=== PATIENT | male | born 1995 | race Caucasian/White ===

== ENCOUNTER 2018-06-05 22:51 | Emergency (ER) | payer BC, SELFPAY ==
[2018-06-05 22:53] VITALS: BP 139/83; PULSE 106; RESP 25; TEMP 37.4; O2SAT 99; BMI 35.9
--- NOTE | 2018-06-05 23:13 | EKG12_ITS ---
Test Reason : CP Blood Pressure : / mmHG Vent. Rate : 105 BPM Atrial Rate : 105 BPM P-R Int : 130 ms QRS Dur : 084 ms QT Int : 332 ms P-R-T Axes : 056 067 042 degrees QTc Int : 438 ms Sinus tachycardia Otherwise normal ECG Confirmed by JALEN WIN, JAVIER ([id number]), feather separator OTTONIEL SAXENA ([id number]) on 06/07/2018 11:09:34 AM Referred By: Usman Frankel Confirmed By:JAVIER RAO MD
--- NOTE | 2018-06-05 23:13 | RAD_ITS ---
HISTORY: CoughRAD - ChestCHEST PAIN TONIGHT WHILE WATCHING TV, NO HX OF PAIN EXAM:XR Chest 2 Views: COMPARISON: None FINDINGS: EKG leads in place. Right lower lobe small posterior infiltrate compatible with pneumonia and additional right midlung small infiltrate or atelectasis. Left lung appears clear. Normal heart size. No vascular congestion or pleural effusion. Remote, healed fracture of the mid right clavicle. No pneumothorax. RAD/Chest PA and Lateral IMPRESSION: 1. Right lower lobe small pneumonia and right midlung small atelectasis or infiltrate. 2. Right lung infiltrate should be followed to radiographic resolution. at 0023 Reported and signed by: Kenny Kothari MD Electronically Signed: Kenny Kothari, at 0:22 EDT Tel , Service support ,
[2018-06-05 23:24] VITALS: PULSE 106; RESP 24
[2018-06-05] MEDS: Ipratropium/Albuterol Sulfate 3 ML AMPUL.NEB INHALATION (23:24)
[2018-06-05 23:31] LABS: Absolute Lymphocyte Count 2.64 X10^3/ul (0.83-4.51); Absolute Neutrophil Count 9.9 X10^3/uL (2.0-7.7); Basophil# 0.02 X10^3/uL; Basophil% 0.1 % (0-1); Eosinophils% 0.7 % (0-5); Hematocrit 42.4 % (40-54); Hemoglobin 14.7 g/dl (13.0-16.5); Lymphocyte # 2.64 X10^3/ul (4.0); Lymphocyte % 19.1 % (19-41); Mean Corp Hgb Conc 34.7 g/gl (32-36); Mean Corpuscular Hgb 28.9 pg (27.0-32.0); Mean Corpuscular Volume 83.5 fL (80-94); Mean Platelet Vol. 9.1 fl (6.2-12.0); Monocyte# 1.12 X10^3/uL; Monocyte% 8.1 % (0-10); Neutrophil # 9.93 X10^3/uL (2.7-7.7); Neutrophil % 71.9 % (47-70); Platelet Count 339 K/mm3 (150-450); RBC Distribution Width CV 12.5 % (11.6-14.6); Red Blood Count 5.08 M/mm3 (4.6-6.2); White Blood Count 13.8 K/mm3 (4.4-11.0)
[2018-06-05 23:32] LABS: POSITIVE COUNT NO; POSITIVE DIFFERENTIAL NO; POSITIVE MORPHOLOGY NO
[2018-06-05 23:35] LABS: Anion Gap 7 (5-15); BUN 11 mg/dL (7-18); BUN/Creat Ratio 12.4 RATIO (10-20); Chloride 102 mmol/L (98-107); Creatinine, Serum 0.89 mg/dL (0.70-1.30); EST Glomerular Filtration Rate 115 mL/min (>60); Est Glom Filt Rate - Afr Amer 139 mL/min (>60); Estimated Creatinine Clearance 122.75 ml/min; Glucose 131 mg/dL (74-106); Potassium 3.5 mmol/L (3.5-5.1); Sodium Level 135 mmol/L (136-145)
[2018-06-05] MEDS: 0.9% Normal Saline 1,000 ML 150 ML IV (23:43)
[2018-06-05] MEDS: Morphine 4 MG/ML Syringe IV (23:44)
[2018-06-05] MEDS: Ondansetron 4 MG/2 ML Vial IV (23:44)
[2018-06-06 00:13] LABS: Lactic Acid 0.8 mmol/L (0.4-2.0)
--- NOTE | 2018-06-06 00:17 | ED.DCSUM_ITS ---
- ER Visit Summary Date of Service: 06/06/18 Chief Complaint: [Right-sided chest pain] History of Present Illness: The patient is a 23 M [presents to ER with right- sided chest pain that started this evening he describes it as sharp and stabbing and worse with deep breath. Patient states that he has been sick for about 3 weeks with fever and cough. Patient was seen by a physician about 3 days ago and started on Zithromax. Patient continues to cough. He denies recent travel or surgery.] Physical Examination: [HEENT-PERRLA, EOMI. Cranial nerves II through XII grossly intact. TMs clear. Mucous membranes moist. No adenopathy. Patient seems flushed. Patient ill-appearing. Cardiovascular-regular rate and rhythm without murmur or ectopy Lungs-rhonchi and rails mostly on the right side. Patient has a mild tachypnea. Patient has pleuritic pain with deep breath. On the right chest. No accessory muscle use or retractions. Abdomen-normoactive bowel sounds, soft, nontender, no rebound or rigidity, no peritoneal signs. Extremities-intact ?4, normal range of motion, normal pulses, atraumatic] Test Results: EKG obtained on arrival showed a sinus rhythm with a ventricular rate of 105 bpm. CBC with differential showed a white count of 13.8, hemoglobin 14.7, hematocrit 42, platelets 339. Chemistries unremarkable. Influenza was negative. Chest x-ray obtained showed a right-sided pneumonia/infiltrate.] Emergency Department Course and Treatment: [Patient was treated with Levaquin 750 mill grams IV and cultures were ordered.] Treatment Plan: [Admit] Disposition: [Admit] Impression: [Community-acquired pneumonia Sepsis Chest pain] This note was generated with [email or web address] dictation software. It may contain incorrect words, spelling, and punctuation that were not noted in review of the chart prior to signing ED Disposition - Plan for ED Patient: Referrals: Blanka Oates NP-C [Primary Care Provider] -
[2018-06-06 00:44] VITALS: BP 135/51; PULSE 93; RESP 18; O2SAT 94
[2018-06-06] MEDS: levoFLOXacin IV 750 MG/150 ML BAG 100 MG IV (00:44)
--- NOTE | 2018-06-06 00:46 | ED.VISSUMM ---
- ER Visit Summary Date of Service: 06/06/18 Chief Complaint: [Addendum to initial dictation] History of Present Illness: The patient is a 23 M [] Physical Examination: [] Test Results: [] Emergency Department Course and Treatment: [] Treatment Plan: [Patient case was discussed with hospitalist who does not feel patient meets community-acquired pneumonia criteria for admission and asked that patient be discharged to home on Levaquin. I discussed this with the patient is comfortable going home and returning if symptoms should worsen in any way.] Disposition: Discharged home in stable condition] Impression: [Pneumonia] This note was generated with [employer] dictation software. It may contain incorrect words, spelling, and punctuation that were not noted in review of the chart prior to signing
--- NOTE | 2018-06-06 01:03 | ED.DEP ---
ED Disposition - Plan for ED Patient: Instructions: ED Chest Pain NonCardiac, ED Pneumonia Adult Prescriptions: Hydrocodone Bitart/Apap 5-325 [[place] 5MG-325MG] 1 tab PO Q4H PRN PRN 2 Days #10 tab PRN Reason: Pain Levofloxacin [Levaquin] 750 mg PO DAILY #6 tab Referrals: Blanka Oates, HEEL EMERY BUFFER-C [Primary Care Provider] - 1-2 Days if not improving
--- NOTE | 2018-06-06 01:04 | DCINST.ED_ITS ---
ED Disposition - Plan for ED Patient: Instructions: ED Chest Pain NonCardiac, ED Pneumonia Adult Prescriptions: Hydrocodone Bitart/Apap 5-325 [[place] 5MG-325MG] 1 tab PO Q4H PRN PRN 2 Days #10 tab PRN Reason: Pain Levofloxacin [Levaquin] 750 mg PO DAILY #6 tab Referrals: Blanka Oates, PERIPATOLOGIST-C [Primary Care Provider] - 1-2 Days if not improving
[2018-06-06 02:23] VITALS: BP 128/62; PULSE 92; RESP 18; O2SAT 95
--- NOTE | 2018-06-06 02:28 | ED.RN ---
HOME PACK GIVEN. 4 HORATIO.
== END 2018-06-06 02:30 | disposition home or self-care (01) ==
LOC: ED 23:55
PROVIDERS: Emergency Provider Emergency Medicine; Family Provider Nurse Practitioner Family; PCP Nurse Practitioner Family; Referring Provider Hospitalist
DX: A41.9 Sepsis, unspecified organism (principal); J18.9 Pneumonia, unspecified organism; R07.9 Chest pain, unspecified
CPT/HCPCS: 71046; 80048; 83605; 85025; 87040; 87804; 93005; 94640; 96361; 96374; 96375; 99284; J7030; A4216; J2405